=== PATIENT | male | born 1965 | race Caucasian/White ===

== ENCOUNTER 2017-03-14 17:10 | Emergency (ER) | payer SELFPAY ==
[~2017-03-14] VITALS: Ht 185.4 cm; Wt 86.0 kg
[2017-03-14] MEDS ORDERED: LIDOCAINE/EPINEPH/TETRACAINE 1 EA SYR EXT STA (17:29)
--- NOTE | 2017-03-14 17:34 | EMERGENCY ROOM VISIT NOTE ---
History Report prepared by Elliott: Chito Blanco Under the Supervision of: Dr. Richard Kim M.D. First contact with patient: 17:17 Stated Complaint: FALL, LACERATION, ETOH History of Present Illness The patient is a 52 year old male who presents to the Emergency Room with complaints of a sudden fall occurring prior to arrival. The patient states [place] the [place] and [place] and hit his head and now has a laceration on the back of his head. He notes that he was tailgating earlier, and he has had about 8 alcoholic drinks. He denies any loss of consciousness, head pain, neck pain, chest pain, shortness of breath, and abdominal pain. He denies any active medical problems. The patient notes that he does not usually drink alcohol. History is limited secondary to intoxication. Source of History: patient History Limited By: intoxication Onset: prior to arrival Position: other (global) Timing: other (sudden) Associated Symptoms: No LOC, No headache, No neck pain, No chest pain, No SOB, No abdominal pain Note: Associated symptoms: Laceration Review of Systems See HPI for pertinent positives & negatives. A total of 10 systems reviewed and were otherwise negative. Past Medical & Surgical Medical Problems: (1) No Known Active Medical Problems Old medical records were attempted to be reviewed but there are no old records at this hospital. Nurse's notes were reviewed and I agree with. Social History Alcohol Use: occasionally Drug Use: none Occupation Status: employed Current/Historical Medications No Active Prescriptions or Reported Meds Allergies Coded Allergies: No Known Allergies (Unverified , 03/14/17) Physical Exam Vital Signs Date Time Temp Pulse Resp B/P (MAP) Pulse Ox O2 Delivery O2 Flow Rate FiO2 03/14/17 17:52 36.9 103 141/99 95 Room Air 03/14/17 17:23 103 Physical Exam General: Moderately intoxicated, non-ill appearing, middle aged male in no acute distress. Smells of alcohol. HEENT: Moderate to large hematoma on the right occipital scalp. There is a 3cm laceration with a small amount of bleeding. Normal cephalic. Eyes are blood shot. Pupils are equal round and reactive to light. Extraocular movements are intact. Oropharynx is pink with moist mucous membranes. No swelling of the mouth lips or tongue. Neck: Supple with a midline trachea. No meningeal signs or stiffness, no JVD or bruits. No Stridor. Chest: Clear to auscultation bilaterally. No wheezes or rhonchi. No increased work of breathing. Heart: regular rate and rhythm. Abdomen: Soft nontender, nondistended without rebound guarding or rigidity. Extremities: No cyanosis clubbing or edema. No calf tenderness or assymetry Spine/Back. Non tender to palpation. No CVA tenderness Skin: Good turgor without rashes. Neurologic exam: GCS of 15. Cranial nerves two through 12 are intact. Motor and sensation are intact and symmetrical throughout. Medical Decision & Procedures ER Provider Diagnostic Interpretation: Radiology results as stated below per my review and radiologist interpretation: CT HEAD WITHOUT CONTRAST (CT) CLINICAL HISTORY: Head pain. Head trauma. Intoxication. COMPARISON STUDY: No previous studies for comparison. TECHNIQUE: Axial CT of the brain is performed from the vertex to the skull base. IV contrast was not administered for this examination. A dose lowering technique was utilized adhering to the principles of ALARA. CT DOSE: 687.98 mGy.cm FINDINGS: No intra or extra-axial mass lesions are visualized. There is no CT evidence of acute cortical infarction. There is no evidence of midline shift. There is no acute hemorrhage. Slight increased density of the falx, likely secondary to falx calcification. No calvarial fractures are visualized. There are minimal white matter hypodensities likely on a small vessel basis. There is no evidence of pathologic ventricular dilatation. There is no evidence of acute sinusitis. There is a right parietal scalp hematoma. IMPRESSION: 1. Right parietal scalp hematoma 2. No acute intracranial findings. Electronically signed by: Dominic Yost M.D. 03/14/2017 6:29 PM Dictated Date/Time: 03/14/2017 6:26 PM Medications Administered Medications (Trade) Dose Ordered Sig/Gerri Route Start Time Stop Time Status Last Admin Dose Admin Tetracaine/ Epinephrine/ Lidocaine (L.e.t. Gel 4%/ 1:100/0.5%) 1 ea NOW STAT EXT 03/14/17 17:29 03/14/17 17:31 DC 03/14/17 17:29 1 EA Procedure Location: scalp Total length: 2.5cm Complexity: simple Verbal consent was obtained after the risks and benefits were explained, including but not limited to bleeding, scarring, infection, pain, and bone/joint /nerve damage. At this time, the risks of the procedure are less than the risks of NOT performing the procedure. A time out was taken and the correct patient and site identified. The skin was prepped with betadine. The target area was anesthetized with LET gel. Copious irrigation was performed using normal saline. The skin was re-prepped with betadine and a sterile field set. The wound was explored for foreign bodies and none found. Examination revealed no injury to deep structures such as tendons, bone, or significant blood vessels. Debridement was not performed. The wound edges were approximated using 6 kimberly. Hemostasis and excellent approximation was achieved. Antibacterial ointment and a sterile dressing applied. Detailed wound care instructions and signs and symptoms of infection reviewed with the patient. No complications and the patient tolerated the procedure well. ED Course 1719: Past medical records reviewed. The patient was evaluated in room B4, and a complete history and physical examination were performed. 1728: LET Gel 4%/ 1:100/0.5% EXT 1811: I reevaluated the patient, and repaired his laceration. 1841: I reassessed the patient, and he was doing well. 1930: Upon reevaluation, the patient is doing well and seemingly less intoxicated. 1950: Upon reevaluation, the patient is doing well and he got a ride. I discussed the results and treatment plan with him. He verbalized agreement of the treatment plan. The patient was discharged home. Medical Decision Differentials include, but are not limited to; laceration, alcohol intoxication , closed head injury, intracranial hemorrhage. This patient comes in as described above. He was placed in room B4. He is brought in after drinking heavy amount of alcohol and he fell he has a large hematoma with a laceration. The patient is intoxicated but answers questions appropriately initially declined a CAT scan and suture repair. he ultimately did agree to suture repair and let gel was applied the wound was approximated using kimberly. He did ultimately consent to a CAT scan it was negative. He apparently blew just over 300 on a breathalyzer test. He was observed in the ER and had no further complaints. He will be discharged when sober friends arrive. He should return if he has any problems and have the kimberly out by his doctor 5 days. Medication Reconcilliation Current Medication List: was personally reviewed by me Blood Pressure Screening Patient's blood pressure: Elevated blood pressure Blood pressure disposition: Elevated BP felt to be situational Impression Primary Impression: Alcohol use with intoxication Additional Impressions: Scalp laceration Concussion Scribe Attestation The scribe's documentation has been prepared under my direction and personally reviewed by me in its entirety. I confirm that the note above accurately reflects all work, treatment, procedures, and medical decision making performed by me. Departure Information Dispostion Home / Self-Care Prescriptions No Active Prescriptions or Reported Meds Forms HOME CARE DOCUMENTATION FORM, IMPORTANT VISIT INFORMATION Patient Instructions My [facility] Additional Instructions Rest. Do not drink any more alcohol Ice your head intermittently Return if: Not acting like self, increasing pain, worsening symptoms, any problems with the wound, any new problems or concerns You do have kimberly in your head and these do need to be removed by a doctor in your area 5 days. Problem Qualifiers
[2017-03-14 17:52] VITALS: TEMP 36.9; Ht 185.4 cm; Wt 86.0 kg
--- NOTE | 2017-03-14 18:30 | DIAGNOSTIC IMAGING REPORT ---
CT HEAD WITHOUT CONTRAST (CT) CLINICAL HISTORY: Head pain. Head trauma. Intoxication. COMPARISON STUDY: No previous studies for comparison. TECHNIQUE: Axial CT of the brain is performed from the vertex to the skull base. IV contrast was not administered for this examination. A dose lowering technique was utilized adhering to the principles of ALARA. CT DOSE: 687.98 mGy.cm FINDINGS: No intra or extra-axial mass lesions are visualized. There is no CT evidence of acute cortical infarction. There is no evidence of midline shift. There is no acute hemorrhage. Slight increased density of the falx, likely secondary to falx calcification. No calvarial fractures are visualized. There are minimal white matter hypodensities likely on a small vessel basis. There is no evidence of pathologic ventricular dilatation. There is no evidence of acute sinusitis. There is a right parietal scalp hematoma. IMPRESSION: 1. Right parietal scalp hematoma 2. No acute intracranial findings. Electronically signed by: Dominic Yost M.D. 03/14/2017 6:29 PM Dictated Date/Time: 03/14/2017 6:26 PM
[2017-03-14 21:27] VITALS: BP 135/89; PULSE 93; O2SAT 96
== END 2017-03-14 21:30 | disposition home or self-care (01) ==
LOC: C.EDB 17:12
DX: F10.920 Alcohol use, unspecified with intoxication, uncomplicated (principal); S01.01XA Laceration without foreign body of scalp, initial encounter; S06.0X0A Concussion without loss of consciousness, initial encounter; W01.0XXA Fall on same level from slipping, tripping and stumbling without subsequent striking against object, initial encounter; Y92.39 Other specified sports and athletic area as the place of occurrence of the external cause